=== PATIENT | female | born 1995 | race Caucasian/White ===

== ENCOUNTER 2016-10-14 12:17 | Emergency (ER) | payer OTHER ==
[~2016-10-14] VITALS: Ht 167.6 cm; Wt 63.6 kg
[~2016-10-14 12:17] MED LIST: NAPR500T PO
[2016-10-14 12:22] VITALS: BP 111/69; PULSE 57; RESP 16; O2SAT 100
--- NOTE | 2016-10-14 12:51 | ED.REPORT ---
HPI-Psychiatric Illness Date of Service Oct 14, 2016 ED Provider: History of Present Illness: 21-year-old female here for anxiety, panic and depression. Ongoing for about 2 months. Onset when she returned from a mission trip, she was gone for a year. She was gone abroad for a year and when she returned she had an increase in panic, anxiety and depression. While she was gone there is also some family issues that she was unable to deal with while she was away. She gets panic at work and at home she does not know what triggers it. She did not have significant anxiety or depression before she left a year ago. She has never been on any medications. She has SI but no plan. She thinks about it a few times a day. No Previous suicidal attempts. She lives with her sister and this is a good situation for her. She feels safe. Her sister is an RN. 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 Denies drug or alcohol use. Sent from urgent care She is also being treated for UTI with Cipro 2 weeks. There is also a "black spot" in her vaginal area that she is taking the Cipro for. SHe is unsure if the spot is getting bigger or smaller, it is a hard place to look Nursing Notes Stated Complaint: ANXIETY/DEPRESSION Chief Complaint: Psychiatric Complaint Nursing Notes Reviewed: Yes Allergies: Coded Allergies: No Known Allergies (Unverified , 10/14/16) Scheduled PRN Naproxen (Naprosyn) 500 Mg Tablet 500 MG PO BID PRN PRN For Pain General Time Seen by MD: 12:27 Chief Complaint Anxious, Depressed Hx Obtained From: Patient Arrived By: Walk-in Onset Occurred: Onset unknown Symptom Duration: Intermittent Severity: Current: No pain currently Severity: Maximum: No pain Immunizations: Unknown Recent Healthcare: Recent doctor visit Risk-Psychiatric Illness Suicide Risk Stratification RF Statements: Risk factors reviewed, Risk factors N/A Past Medical History Past Medical History Notes: anxiety. depression Past Medical History Healthy Social History Other Social History: Good social support, Local resident Ambulatory Status Independent Review of Systems Basic Review of Systems Eyes: Vision NL, No discharge ENT: Hearing NL, No pain, No nasal congestion, No pharyngeal pain : No dysuria, No frequency Endocrine: No cold intolerance, No heat intolerance, No weight gain, No weight loss Constitutional: Denies: Fatigue Respiratory: Denies: Dyspnea on exertion Cardiovascular: Denies: Chest pain GI: Denies: Abdominal pain Complete sys rev & neg: except as marked. Physical Exam Initial Vital Signs Vital Signs (First) Date Time Temp Pulse Resp B/P Pulse Ox O2 Delivery O2 Flow Rate FiO2 10/14/16 12:22 36.5 57 16 111/69 100 Room Air Initial VS: Reviewed, Vital signs normal Head / Eyes: Atraumatic, Normocephalic, PERRL Respiratory: Breath sounds normal, Clear to auscultation, No respiratory distress Cardiovascular: Regular rate & rhythm, Heart sounds normal, Intact distal pulses Abdomen / GI: Soft, Non-tender, No guarding, No rebound, No distention Extremities: Vascular intact, Neuro intact, No swelling, No tenderness Skin: Warm, Dry, No cyanosis Psychiatric: Affect NL, Mood NL, Not suicidal, Not homicidal, No hallucinations , Cognitive function NL, Judgment/insight NL, Thought content NL Re-Eval/Medical Decision Med Decision/Clinical Course Social work met with patient, gave resources. Patient comfortable going home patient feels safe in her surroundings, no SI at this point. She is taking a natural magnesium supplements that is for anxiety and feels like this is helping. She is only been on in a few days. SHe can continue this. Patient has good social support at home. Discussed her vaginal infection she is dealing with. She is on day 4 of Cipro. The pain has decreased but is unsure if she is getting better. She does not want a further evaluation today. She will follow up if worsening after Cipro. Discharge & Departure Shift Change Sign-Out Procedures: Results discussed Response to Therapy: Improved Impression: Primary Impression: Depression Depression Type: unspecified Qualified Code: F32.9 - Major depressive disorder, single episode, unspecified Additional Impression: Anxiety )( Condition at Discharge: No danger to self, No danger to others, No suicidal ideation Disposition: Home Discharge Condition All VS Reviewed: Yes Condition: Stable Patient Instructions: Panic Attack (ED) Additional Instructions: Thank you for your visit today. You were given Follow-up resources for counseling, schedule as soon as possible. You have information for mental health resources in the community. These resources can help you in times of acute panic or depression or suicidal thoughts. Utilize these numbers if needed. Continue your natural anti-anxiety treatment as it sounds like it is helping. You may also try an [id number] sleep aid at night if needed. Establish with a PCP in the area for further prescriptions if needed. Return to ER for severe anxiety, depression or suicidal ideation. Referrals: Eliazar Matias MD (PCP) EDSupervising Provider for APC: Kleber Cade Linnea K ARNP Oct 14, 2016 12:51
== END 2016-10-14 13:50 | disposition home or self-care (01) ==
LOC: SED 12:17
DX: F32.9 Major depressive disorder, single episode, unspecified (principal); F41.9 Anxiety disorder, unspecified